=== PATIENT | female | born 1980 ===

== ENCOUNTER → 2016-02-11 | Outpatient (CLI) | payer OTHER ==
[~2016-02-11] MED LIST: FERR1TAB13 PO; MTR600X PO; OXYC-57 PO; PRENTAB26 PO; ZNTT/150 PO
[2016-02-11 18:19] LABS: URINE APPEARANCE CLEAR (CLEAR); URINE BILIRUBIN NEG (NEG); URINE COLOR YELLOW; URINE EPITHELIAL CELL AUTO >30 /lpf (0-5); URINE NITRITE NEG (NEG); URINE SPECIFIC GRAVITY 1.019 (1.000-1.030); UROBILINOGEN NEG (NEG)
[2016-02-11 18:21] LABS: MANUAL MICROSCOPIC REQUIRED? NO; REVIEW REQ? NO
== END | disposition home or self-care (01) ==
LOC: C.LABSPEC 17:45
PROVIDERS: ATTEND Obstetrics & Gynecology
DX: O09.523 Supervision of elderly multigravida, third trimester (principal); Z3A.00 Weeks of gestation of pregnancy not specified

== ENCOUNTER → 2016-02-29 | Outpatient (CLI) | payer OTHER ==
[2016-02-29 16:03] LABS: URINE APPEARANCE TURBID (CLEAR); URINE COLOR ORANGE; URINE EPITHELIAL CELL AUTO >30 /lpf (0-5); URINE NITRITE POS (NEG); UROBILINOGEN NEG (NEG)
[2016-02-29 16:10] LABS: MANUAL MICROSCOPIC REQUIRED? NO; REVIEW REQ? YES
[2016-02-29 16:14] LABS: URINE BILIRUBIN NEG (NEG)
[2016-02-29 16:16] LABS: URINE PATH CASTS 0-3 GRANULAR CASTS /lpf (0)
== END | disposition home or self-care (01) ==
LOC: C.LABSPEC 12:40
PROVIDERS: ATTEND Obstetrics & Gynecology
DX: O30.041 Twin pregnancy, dichorionic/diamniotic, first trimester (principal)

== ENCOUNTER 2016-03-21 18:22 | Outpatient (CLI) | payer OTHER ==
[2016-03-21] MEDS ORDERED: PRENTAB26 PO (18:50)
[2016-04-26] MEDS ORDERED: OXYC-57 PO (07:42)
[2016-04-26] MEDS ORDERED: MTR600X PO (07:42)
== END 2016-03-21 19:09 | disposition home or self-care (01) ==
LOC: C.OPB 18:22 → C.LD 18:22 → C.OPB 19:09
PROVIDERS: ATTEND Obstetrics & Gynecology
DX: O30.003 Twin pregnancy, unspecified number of placenta and unspecified number of amniotic sacs, third trimester (principal); Z3A.32 32 weeks gestation of pregnancy

== ENCOUNTER 2016-03-28 10:21 | Outpatient (CLI) | payer OTHER ==
[~2016-03-28 10:21] MED LIST changes: -FERR1TAB13 PO; -MTR600X PO; -OXYC-57 PO; -ZNTT/150 PO
== END 2016-03-28 10:50 | disposition home or self-care (01) ==
LOC: C.OPB 10:21 → C.LD 10:21 → C.OPB 10:50
PROVIDERS: ATTEND Obstetrics & Gynecology
DX: O30.003 Twin pregnancy, unspecified number of placenta and unspecified number of amniotic sacs, third trimester (principal); Z3A.34 34 weeks gestation of pregnancy

== ENCOUNTER 2016-03-31 07:30 | Inpatient (IN) | payer OTHER ==
[~2016-03-31] VITALS: Ht 170.2 cm; Wt 103.0 kg
[2016-04-23] MEDS ORDERED: ZNTT/150 PO (13:52)
--- NOTE | 2016-04-23 14:15 | PAT Medication Instructions ---
Service Date Apr 23, 2016. Current Home Medication List Multivit/Min/Iron/Fol Ac/Pren ( Vitamin), 1 TAB PO QAM Ranitidine (Zantac), 150 MG PO QAM Medication Instructions For Your Scheduled Surgery - Hold the following medications 48 hours prior to surgery: Multivit/Min/Iron/Fol Ac/Pren ( Vitamin), 1 TAB PO QAM Ranitidine (Zantac), 150 MG PO QAM If you have any questions please call us at [phone] (Diane Prado PA-C) or [phone] or [phone]
[2016-04-23 14:49] LABS: BASO % 0.2 %; BASO ABS # 0.02 K/uL (0-0.2); COMPLETE YES; EOS % 0.8 %; HEMATOCRIT 31.2 % (37-47); IG% 0.3 %; LYMPH % 15.8 %; LYMPH ABS # 1.39 K/uL (1.2-3.4); MEAN CELL VOLUME 80.2 fL (80-100); MEAN CORPUSCULAR HEMOGLOBIN 27.2 pg (25-34); MEAN PLATELET VOLUME 12.1 fL (7.4-10.4); MONO % 8.4 %; NEUT % 74.5 %; PLATELET COUNT 188 K/uL (130-400); RED BLOOD COUNT 3.89 M/uL (4.2-5.4); WHITE BLOOD COUNT 8.81 K/uL (4.8-10.8)
--- NOTE | 2016-04-23 18:34 | HISTORY & PHYSICAL EXAMINATION ---
DATE OF ADMISSION: 04/24/2016 CHIEF COMPLAINT: Term intrauterine , scheduled section. HISTORY OF PRESENT ILLNESS: The patient is a 35-year-old G2, P1-0-0-1 with a due date of 05/10/2016 who is at 37 weeks and 4 days for a scheduled section. She is feeling positive movement, no vaginal bleeding or gushing of fluid, no regular contractions. is complicated by Di-Di twin gestation with growth discrepancy and a drop in the abdominal circumference of baby B, thus prompting a delivery window recommended by [facility] for delivery between 37 and 38 weeks. The patient also desires tubal ligation and signed informed consent in the office. OB HISTORY: History of vaginal delivery x1 in 2006 at 40 weeks 6 days, weighing 8 pounds 9 ounces, no anesthesia and no complications. Last Pap smear 2012 was normal. MEDICAL HISTORY: Anxiety with taking Ativan in the past but stopped once she discovered she was . SURGICAL HISTORY: Tonsillectomy. SOCIAL HISTORY: Denies tobacco, alcohol and drug use. FAMILY HISTORY: Noncontributory. REVIEW OF SYSTEMS: All reviewed negative except as described above. MEDICATIONS: vitamins. ALLERGIES: No known drug allergies. PHYSICAL EXAMINATION: VITAL SIGNS: Stable, afebrile. GENERAL IMPRESSION: Awake, alert and oriented x3, no acute distress. CARDIOVASCULAR EXAMINATION: Regular rate and rhythm S1, S2, no murmurs, gallops or rubs. LUNGS: Clear to auscultation bilaterally. ABDOMEN: Soft, gravid, nontender to palpation. No signs or symptoms of chorioamnionitis or placental abruption. EXTREMITIES: Trace edema. No calf tenderness. Right venous varicosities on right lower extremity. LABORATORY DATA: Blood type A positive, antibody negative, rubella immune, RPR nonreactive, hepatitis B surface antigen negative, HIV negative, gonorrhea and chlamydia negative. The patient declined quad screen. Group B strep negative. ASSESSMENT AND PLAN: 1. A 35-year-old G2, P1-0-0-1 at 37 weeks 5 days. 2. Di-Di twin gestation with growth discrepancy and drop in abdominal circumference of baby. PLAN: Primary low transverse section with tubal ligation per patient request. Will admit to labor and delivery. The patient will have preoperative labs of CBC and type and screen. Will give Ancef and bicitra preoperatively and consultation for anesthesia for spinal prior to .
[2016-04-24] VITALS (17 sets, daily range): BP systolic 110–124; BP diastolic 64–78; PULSE 76–110; TEMP 36.5–37.1; O2SAT 95–99; Ht 170.2 cm; Wt 103.0 kg
[2016-04-24] MEDS ORDERED: LACTATED RINGER'S 1000ML 1,000 ML IV ONE (05:51)
[2016-04-24] MEDS ORDERED: CEFAZOLIN IV 2,000 MG in DEXTROSE 5% 50ML IV SCH (06:00)
[2016-04-24] MEDS ORDERED: CITRIC ACID/SODIUM CITRATE 15 ML UDC PO SCH (06:00)
[2016-04-24] MEDS ORDERED: LACTATED RINGER'S 1000ML 1,000 ML IV SCH (06:00)
[2016-04-24] MEDS ORDERED: OXYTOCIN INJ 10 UNITS/ML VIAL ONE (06:45)
[2016-04-24] MEDS ORDERED: MoRPHine SULFATE PF 1 MG/ML 10 ML AMP/VIAL ONE (06:45)
[2016-04-24] MEDS ORDERED: PHENYLEPHRINE HCL INJ 10 MG/ML VIAL ONE (06:45)
[2016-04-24] MEDS ORDERED: FENTANYL CITRATE INJ 50 MCG/1 ML 2 ML VIAL ONE (06:45)
[2016-04-24] MEDS ORDERED: ONDANSETRON INJ 2 MG/ML 2 ML VIAL ONE (06:45)
[2016-04-24] MEDS ORDERED: EpHEDrine SULFATE INJ 50 MG/ML AMP ONE (06:45)
--- NOTE | 2016-04-24 07:22 | History & Physical Bridge Note ---
H&P Re-Evaluation Bridge Note: I have examined the patient, reviewed the History & Physical and in the interval since the performance of the History & Physical I have noted the following changes of clinical significance: No changes noted
[2016-04-24] MEDS ORDERED: LACTATED RINGER'S 1000ML 500 ML IV PRN (08:52)
[2016-04-24] MEDS ORDERED: SODIUM CHLORIDE 0.9% 1000ML 1,000 ML IV PRN (08:52)
[2016-04-24] MEDS ORDERED: NALOXONE HCL INJ 0.08 MG in SYRINGE 1.8 ML IV PRN (08:52)
--- NOTE | 2016-04-24 08:59 | [facility] Post Operative Brief Note ---
Immediate Operative Summary Operative Date Apr 24, 2016. Pre-Operative Diagnosis Caesarean Section for Twin Gestation; Pt desires Bilateral Tubal Ligation. Post-Operative Diagnosis Same as Preop Procedure(s) Performed Live Male Infant A at 0751 Live Male B at [address] Hillman Director Transition Surgeon(s) Dr. Puente Estimated Blood Loss 800 ML Findings A: male Apgars 7/8 wt 3150g B: male Apgars 8/9 wt 2440g Normal appearing uterus, tubes, ovaries. Specimens Placenta (Exam) Cord Blood Portions Left and Right Fallopian Tubes Drains burns, clear yellow Complication(s) None Disposition Recovery Room / PACU
[2016-04-24] MEDS ORDERED: NO NARCOTICS OR SEDATIVES SCH (09:00)
[2016-04-24] MEDS ORDERED: PROMETHAZINE HCL INJ 25 MG in SODIUM CHLORIDE 0.9% 50ML 50 ML IV PRN (09:00)
[2016-04-24] MEDS ORDERED: NALBUPHINE HCL INJ 10 MG/ML AMP IV PRN (09:00)
[2016-04-24] MEDS ORDERED: DiphenhydrAMINE HCL 50 MG/ML VIAL IV PRN (09:00)
[2016-04-24] MEDS ORDERED: MAGNESIUM HYDROXIDE SUSP 30 ML UDC PO PRN (09:00)
[2016-04-24] MEDS ORDERED: NALOXONE HCL 0.4 MG/1 ML VIAL/CARP IV PRN (09:00)
[2016-04-24] MEDS ORDERED: MoRPHine SULFATE PF 1 MG/ML 10 ML AMP/VIAL EPI PRN (09:00)
[2016-04-24] MEDS ORDERED: MoRPHine SULFATE 2 MG/ML CARP IV PRN (09:00)
[2016-04-24] MEDS ORDERED: MEPERIDINE HCL 25 MG/ML CARP IV PRN (09:00)
[2016-04-24] MEDS: SIMETHICONE 80 MG CHEW PO SCH ×4 (09:00→20:28)
[2016-04-24] MEDS ORDERED: ONDANSETRON INJ 2 MG/ML 2 ML VIAL IV PRN (09:00)
[2016-04-24] MEDS ORDERED: EpHEDrine SULFATE INJ 50 MG/ML AMP IV PRN (09:00)
--- NOTE | 2016-04-24 09:07 | Anesthesiology Progress Note ---
Anesthesia Post Op Note Date & Time Apr 24, 2016 at 09:06 Notes Mental Status: alert / awake / arousable, participated in evaluation Pt Amnestic to Procedure: Yes Nausea / Vomiting: adequately controlled Pain: adequately controlled Airway Patency, RR, SpO2: stable & adequate BP & HR: stable & adequate Hydration State: stable & adequate Neuraxial Anesthesia: was administered, sensory block is resolving Anesthetic Complications: no major complications apparent Pt had C/S under spinal. Her anesthetic course was totally uneventful. Post-op vitals BP 133/67, HR 67, RR 15, SpO2 98% on RA, T 36.3.
--- NOTE | 2016-04-24 09:35 | OPERATIVE REPORT ---
DATE OF OPERATION: 04/24/2016 PREOPERATIVE DIAGNOSES: 1. A 35-year-old G2, P1-0-0-1 at 37 weeks and 5 days. 2. Dichorionic-diamniotic twin gestation. 3. growth discrepancy with a drop in abdominal circumference of baby B. 4. Maternal medicine recommendation for delivery between 37 and 38 weeks. POSTOPERATIVE DIAGNOSES: Same. PROCEDURE: Primary low transverse section with bilateral tubal ligation. ANESTHESIA: Spinal. ESTIMATED BLOOD LOSS: 800 mL. FINDINGS: Viable male, twin with baby A, Apgars 7 and 8 and weight 3150 grams. Baby B male viable with Apgars 8 and 9, weight 2440 grams. Normal appearing uterus, tubes, and ovaries. SURGEON: Kathryn Hillman DO STOCK PLAN ADMINISTRATOR: Dr. Alonzo. SPECIMENS: Placenta, cord blood and portions of left and right fallopian tubes. DRAINS: Cook, clear yellow at the conclusion of case. COMPLICATIONS: None. DISPOSITION: Stable and good to recovery room. INDICATIONS FOR PROCEDURE: The patient is a 35-year-old G2, P1-0-0-1 at 37 weeks 5 days, who had a growth discrepancy of di-di twins, which was evaluated by maternal medicine, who recommended delivery between 37 and 38 weeks due to growth discrepancy. The patient elected to have section performed due to twin gestation. DESCRIPTION OF PROCEDURE: The patient was seen in the preoperative holding area where risks, benefits, and alternatives were reviewed. She had previously signed informed consent in the office. All questions were answered and she elected to proceed with surgery. The patient was taken to the operating room, where 2 grams of Ancef was infused prior to incision. She was given spinal anesthesia. She was prepared and draped in the usual sterile fashion in the supine position with a leftward tilt. A timeout was confirmed. A skin incision was made with the scalpel and carried through to the underlying layer of fascia. The fascia was nicked at midline and this incision was extended bluntly and sharply. The superior aspect of the fascial incision was grasped with Pao clamps x2, elevated off the underlying rectus abdominis muscles and dissected bluntly and sharply. In a similar fashion, the inferior aspect of the incision was dissected. The rectus abdominis muscles were at midline. The peritoneum was entered bluntly digitally and this incision was extended bluntly. A bladder blade was placed. The bladder flap was created using Metzenbaum scissors. The bladder blade was replaced and the uterine incision was made with a scalpel. The incision was extended cephalad caudad manually. Baby A delivered from a cephalic presentation. The head delivered followed by the shoulders and body. No nuchal cord was noted. This baby was handed off to the awaiting pediatrics team after the cord was doubly clamped and cut. Cord segment was retained for gases. Spontaneous cry was heard. Next, baby B delivered from a breech presentation, delivering bilateral legs followed by body and head. The cord was doubly clamped and cut. Baby was handed off to an awaiting pediatrics team and a spontaneous cry was heard. The umbilical cords were labeled with plastic umbilical clamp with one clamp on baby A's umbilical cord and 2 clamps on baby B's. The placenta was then delivered manually intact with 2-3 vessel cords. The uterus was exteriorized and swept of all clots and debris. The hysterotomy incision was reapproximated using 0 Vicryl in a running stitch. A second layer of the same suture was used to imbricate the incision. The tubal ligation was performed using a Baudilio clamp to create a knuckle in the fallopian tube. This was tied off x2 with plain gut suture and the segment of tube was removed and sent to pathology. In a similar fashion, the left fallopian tube was transected. The uterus was returned to the abdomen. Excellent hemostasis was observed. The fascial incision was reapproximated using 0 Vicryl in a running stitch. The subcuticular space was irrigated and reapproximated with 2-0 plain gut in a running stitch. The skin was reapproximated using 4-0 Vicryl in a running subcuticular stitch. The patient and babies tolerated the procedure well and went to the recovery area in stable and good condition. I attest to the content of the Intraoperative Record and any orders documented therein. Any exceptio ns are noted below.
[2016-04-24] MEDS: OXYTOCIN INJ 30 UNITS in LACTATED RINGER'S 1000ML 1,000 ML IV SCH ×2 (09:39→18:00)
[2016-04-24] MEDS: KETOROLAC TROMETHAMINE 30 MG/ML VIAL IV. PRN ×2 (12:01→20:27)
[2016-04-24] MEDS: DOCUSATE SODIUM 100 MG CAP PO SCH (20:28)
[2016-04-25 02:00] VITALS: O2SAT 98
[2016-04-25] MEDS ORDERED: DC INTRASPINAL MORPHINE ONE (02:00)
[2016-04-25] MEDS ORDERED: ZOLPIDEM TARTRATE 5 MG TAB PO PRN (02:01)
[2016-04-25] MEDS ORDERED: KETOROLAC TROMETHAMINE 30 MG/ML VIAL IV. PRN (02:01)
[2016-04-25] MEDS ORDERED: ONDANSETRON INJ 2 MG/ML 2 ML VIAL IV PRN (02:01)
[2016-04-25] MEDS ORDERED: PROMETHAZINE HCL INJ 25 MG in SODIUM CHLORIDE 0.9% 50ML 50 ML IV PRN (02:01)
[2016-04-25] MEDS ORDERED: DiphenhydrAMINE HCL 50 MG/ML VIAL IV PRN (02:01)
[2016-04-25] MEDS: IBUPROFEN 600 MG TAB PO PRN ×5 (04:28→21:24)
[2016-04-25 04:30] VITALS: BP 118/69; PULSE 83; TEMP 37; O2SAT 98
[2016-04-25 06:40] LABS: BASO % 0.1 %; BASO ABS # 0.01 K/uL (0-0.2); EOS % 0.2 %; HEMATOCRIT 25.9 % (37-47); IG% 0.2 %; LYMPH % 4.9 %; LYMPH ABS # 0.62 K/uL (1.2-3.4); MEAN CELL VOLUME 79.7 fL (80-100); MEAN CORPUSCULAR HEMOGLOBIN 26.8 pg (25-34); MEAN CORPUSCULAR HGB CONC 33.6 g/dl (32-36); MEAN PLATELET VOLUME 11.5 fL (7.4-10.4); MONO % 9.9 %; NEUT % 84.7 %; PLATELET COUNT 160 K/uL (130-400); RED BLOOD COUNT 3.25 M/uL (4.2-5.4); WHITE BLOOD COUNT 12.68 K/uL (4.8-10.8)
--- NOTE | 2016-04-25 06:40 | Progress Note ---
Subjective Apr 25, 2016. Subjective conversation w/ patient, physical exam Ambulation: ambulating normally Voiding: no voiding problems Passing Gas: No Diet Tolerance: Regular Diet Lochia: Small Feeding Type: Breast Feeding Review of Systems Constitutional: No chills, No fatigue, No fever Respiratory: No cough, No shortness of breath Cardiac: No chest pain, No palpitations Objective Vital Signs Date Time Temp Pulse Resp B/P Pulse Ox O2 Delivery O2 Flow Rate FiO2 04/25/16 04:30 37.0 83 18 118/69 98 Room Air 04/25/16 02:00 16 98 04/24/16 22:45 Room Air 04/24/16 22:45 16 98 04/24/16 22:45 37.1 76 16 110/64 98 Room Air 04/24/16 22:00 20 99 04/24/16 21:00 18 99 04/24/16 20:00 99 Room Air 04/24/16 20:00 16 99 04/24/16 20:00 37.1 81 16 119/65 99 Room Air 04/24/16 19:00 20 99 04/24/16 18:00 18 99 04/24/16 17:00 20 99 04/24/16 16:00 20 99 04/24/16 16:00 99 Room Air 04/24/16 16:00 36.5 81 18 120/78 99 Room Air 04/24/16 15:00 20 97 04/24/16 14:12 36.7 82 16 120/66 98 Room Air 04/24/16 14:11 16 98 04/24/16 13:06 18 98 04/24/16 13:03 36.8 83 18 118/73 98 Room Air 04/24/16 11:59 37.0 110 16 124/64 98 Room Air 04/24/16 11:58 16 98 04/24/16 11:30 36.9 97 18 116/70 95 Room Air 04/24/16 11:30 18 95 04/24/16 11:00 98 Room Air 04/24/16 11:00 16 98 04/24/16 11:00 36.8 91 16 118/77 98 Room Air Physical Exam General Appearance: WELL-APPEARING, NO APPARENT DISTRESS Respiratory/Chest: lungs clear, no respiratory distress Cardiovascular: regular rate, rhythm, no murmur Abdomen: non tender, soft Fundus: Firm, Non-Tender, Relation to Umbilicus (2 cm below) Incision Description: Clean, Dry & Intact Extremities: non-tender, no calf tenderness Laboratory Results Last 24 Hours Test 04/25/16 06:00 Assessment and Plan Post-Op Day#: 1 Continue Routine Care: s/p Twin Day 1 - vitals reviewed and wnl - Hgb reviewed 10.6 - Blood: A+, GBS-, Rubella immune - Encourage ambulation, encourage , monitor lochia - Patient doing well clinically - CONTINUE ROUTINE POST- CARE Resident Physician Supervision Note: I interviewed and examined the patient. Discussed with Dr. Mcmahon and agree with findings and plan as documented in the note. Any exceptions or clarifications are listed here: POD#1. Doing well. Continue routine postop care. Documented By: Kathryn Hillman
[2016-04-25 07:38] VITALS: BP 99/60; PULSE 86; TEMP 36.8; O2SAT 97
[2016-04-25] MEDS: DOCUSATE SODIUM 100 MG CAP PO SCH ×2 (08:50→21:01)
[2016-04-25] MEDS: SIMETHICONE 80 MG CHEW PO SCH ×4 (08:50→21:01)
[2016-04-25 08:52] LABS: COMPLETE YES
[2016-04-25 15:00] VITALS: BP 111/64; PULSE 102; TEMP 37.1; O2SAT 97; O2SAT 99
[2016-04-25] MEDS: OXYCODONE/ACETAMINOPHEN 5-325 TAB PO PRN ×2 (17:13→21:25)
[2016-04-25 23:55] VITALS: BP 118/79; PULSE 84; TEMP 36.8
[2016-04-26] MEDS: OXYCODONE/ACETAMINOPHEN 5-325 TAB PO PRN ×3 (03:22→12:55)
[2016-04-26] MEDS: IBUPROFEN 600 MG TAB PO PRN ×3 (03:23→12:55)
[2016-04-26 06:30] LABS: HEMATOCRIT 26.1 % (37-47)
[2016-04-26] MEDS ORDERED: FERR1TAB13 PO (07:00)
--- NOTE | 2016-04-26 07:00 | Progress Note ---
Subjective Apr 26, 2016. Subjective conversation w/ patient, physical exam Ambulation: ambulating normally Voiding: no voiding problems Passing Gas: Yes Diet Tolerance: Regular Diet Lochia: Small Feeding Type: Breast Feeding Review of Systems Constitutional: No chills, No fever Respiratory: No cough, No shortness of breath Cardiac: No chest pain, No claudication Objective Vital Signs Date Time Temp Pulse Resp B/P Pulse Ox O2 Delivery O2 Flow Rate FiO2 04/25/16 23:55 36.8 84 20 118/79 Room Air 04/25/16 23:55 Room Air 04/25/16 15:00 97 Room Air 04/25/16 15:00 37.1 102 18 111/64 99 Room Air 04/25/16 08:00 Room Air 04/25/16 07:38 36.8 86 20 99/60 97 Room Air Physical Exam General Appearance: WELL-APPEARING, NO APPARENT DISTRESS Respiratory/Chest: lungs clear, no accessory muscle use Cardiovascular: regular rate, rhythm, no murmur Abdomen: non tender, soft Fundus: Firm, Non-Tender, Relation to Umbilicus (2 cm below) Incision Description: Clean, Dry & Intact Extremities: non-tender, no calf tenderness Laboratory Results Last 24 Hours Test 04/26/16 06:15 Hemoglobin 8.5 g/dL Hematocrit 26.1 % Assessment and Plan Post-Op Day#: 2 Continue Routine Care: s/p Twin Day 2 - vitals reviewed and wnl - Hgb reviewed 8.5 today - Blood: A+, GBS-, Rubella immune - Encourage ambulation, encourage , monitor lochia - Patient doing well clinically - CONTINUE ROUTINE POST- CARE Resident Physician Supervision Note: I was present with Dr. Mcmahon during the history and exam. I discussed the case with the resident and agree with the findings and plan as documented in the note. Any exceptions or clarifications are listed here: Doing well. Wants to go home today. Instructions reviewed. Discussed home fe and pain meds scripts. f/u 6wks pp. instructions reviewed. Documented By: Esther Guzmán
--- NOTE | 2016-04-26 07:02 | Discharge Instructions ---
Discharge Instructions Date of Service Apr 26, 2016. Admission Reason for Admission: Twin , Desires Sterilization Discharge Discharge Diagnosis / Problem: Discharge Goals Goal(s): Routine recovery after Medications Continue Dispensed Medications: supercream, dermaplast, tucks, lansinoh Activity Recommendations Activity Limitations: per Instructions/Follow-up section . Instructions / Follow-Up Instructions / Follow-Up ACTIVITY RECOMMENDATIONS: * Gradual return to full activity over the next 2-3 weeks. * No lifting - nothing heavier than baby over the next 2-3 weeks. * Do not engage in vigorous exercise, sexual activity or sports until cleared by your physician. * Do not drive or operate any motorized equipment until cleared by your physician. * You may shower/bathe daily. MEDICATIONS: For discomfort or pain, you may use Acetaminophen (Tylenol), Ibuprofen (Advil), or Naproxen (Aleve) following the package directions. For constipation you may use Colace following the package directions. BREAST CARE: If you are not breast feeding: * Wear a supportive bra 24 hours a day for one to two weeks. * Avoid stimulating your breasts and nipples as much as possible during the first few weeks after delivery. * When taking a shower, have the warm water hit your back, not breasts. * When your breasts feel full, apply ice packs. Usually three to four times a day helps ease the discomfort. * Take a mild pain medication (Tylenol / Motrin) when you are uncomfortable. If breast feeding: * Use breast milk to lubricate nipples. Lansinoh cream may be used for sore nipples. You do not need to remove cream prior to breast feeding. If using a different brand of cream, check the label for directions regarding removal of cream prior to nursing. * Wear a supportive bra. * If having problems with breasts or breast feeding, call a splunk consultant or your health care provider. EPISIOTOMY CARE: After delivery, if you have an episiotomy (stitches), the following steps will ease discomfort and aid healing. * For the first 24 hours after delivery, place ice packs next to your episiotomy to help reduce swelling. * After the first 24 hour-period, sitz baths, either portable or in the tub, are suggested. A shower with a shower arm sprayed over the episiotomy may be comforting. * Tejal care should be done after each voiding and bowel movement. Squirt warm water from a plastic bottle over the perineum (region of the body between the anus and urinary opening) and pat dry. * Use Dermoplast to ease discomfort. Shake container. [place] directly over the episiotomy. Place a Tucks on a clean sanitary pad next to your episiotomy. SPECIAL CARE INSTRUCTIONS: When you are discharged from the hospital, it is important for you to follow the instructions listed below: * During the first week at home, you should be able to care for yourself and your baby. In addition, the usual light household activities are encouraged. * Limit your activities to the way you feel. Do not try to clean the house or move furniture. Be sensible. * If you actively engage in sports and have done so up until the time of your delivery, you may resume these activities as soon as you feel able. This may take up to one month or even longer. Use good judgment. * Continue to take your vitamins for at least six weeks after the of your baby. * Your diet need not be limited unless you were on a special diet before your delivery. Breast-feeding mothers need around 2500 calories per day and at least 64-80 ounces of fluid per day (8 to 10 glasses). * You should eat foods from the four major food groups. Crash diets or fad diets are to be avoided. Eating lean meats, fresh fruits and vegetables, low-fat dairy products, high fiber foods and a regular exercise program, will help you get back to your pre- weight without putting your health at risk. * Constipation is sometimes a problem after delivery. Take a mild laxative as needed. If breast feeding, Milk of Magnesia is acceptable to use. You may use a suppository or Fleets enema if no episiotomy. * A daily shower or tub bath is suggested. Be sure to thoroughly and gently dry the perineum. * A bloody vaginal discharge will usually continue until around four weeks post . A small amount of bleeding may continue for as long as six weeks. Vaginal discharge changes from the bright red bleeding after delivery to pink then brownish and finally yellowish-pink before becoming white and disappearing. * Bleeding may increase with activity. Your first period may come in 4-8 weeks. If you are breast feeding, your period may be delayed even longer. * [place] (sex) can begin whenever both you and your partner feel comfortable and do not have any form of genital infection. It is recommended that you wait at least six weeks for internal and external healing to occur. If you have questions, please talk to your health care practitioner. A condom should be used to prevent infection and . * Foreplay, gentle intercourse and lubrication is very important the first several times to prevent pain. A water-based lubricant such as K-Y jelly or Astroglide may be used. * If you have RH negative blood and your baby is RH positive, you will receive RHOGAM by injection prior to discharge. The nurse will give you a card to keep with you that has the date and place that you received RHOGAM after delivery. * During your care, you had a Rubella screen done to check for the presence of rubella antibodies in your blood. If your test was negative, you will receive a Rubella vaccine prior to discharge. This vaccine may cause a fever, soreness at the injection site and flu-like symptoms. If these symptoms persist, notify your health care practitioner. is not advised for one month after a Rubella vaccine. * Verbalizes understanding of car seat law as reviewed with patient nursing. * Car Seat hand-out given and reviewed with patient by nursing. * Shaken baby information reviewed with patient by nursing. Call you doctor if: * Heavy bleeding (saturating several pads an hour) or passing clots the size of your fist. * A fever >101 degrees F (38.3 degrees C) on two occasions four hours apart and /or chills. * Unusual pain in the pelvic or vaginal areas. * "Baby Blues" lasting longer than two weeks. If you have any questions or concerns, call your health care practitioner at . FOLLOW UP VISIT: * Please call the office at to schedule a 6 week examination. It is important you keep this appointment. It is important for you to make arrangements for either yearly or twice yearly check-ups thereafter. Current Hospital Diet Patient's current hospital diet: Vegetarian Diet Discharge Diet Recommended Diet: Regular Diet Procedures Procedures Performed: Live Male Infant A at 0751 Live Male B at 0752 Pending Studies Studies pending at discharge: no Medical Emergencies . Who to Call and When: Medical Emergencies: If at any time you feel your situation is an emergency, please call 911 immediately. . Non-Emergent Contact Non-Emergency issues call your: Primary Care Provider, Compensation Adjuster . . "Provider Documentation" section prepared by Juan Mcmahon. VTE Core Measure Inpt VTE Proph given/why not?: Treatment not indicated
[2016-04-26] MEDS ORDERED: OXYC-57 PO (07:42)
[2016-04-26] MEDS ORDERED: MTR600X PO (07:42)
[2016-04-26 08:00] VITALS: BP 111/73; PULSE 80; TEMP 36.6; O2SAT 99
[2016-04-26] MEDS: SIMETHICONE 80 MG CHEW PO SCH ×2 (08:05→12:54)
[2016-04-26] MEDS: DOCUSATE SODIUM 100 MG CAP PO SCH (08:05)
[2016-04-26] MEDS ORDERED: BISACODYL 10 MG SUPP PR PRN (09:00)
[2016-04-26 15:20] VITALS: BP_DIAS 73; PULSE 80; TEMP 36.6
--- NOTE | 2016-05-06 03:01 | DISCHARGE SUMMARY ---
PREADMISSION DIAGNOSES: 1. A 35-year-old -0-0-1 at 37 weeks 5 days. 2. Dichorionic diamniotic twin gestation. 3. growth discrepancy with drop in abdominal circumference of baby B. 4. Maternal medicine recommendation for delivery between 37 and 38 weeks. DISCHARGE DIAGNOSES: Same. PROCEDURE: Primary low transverse section with bilateral tubal ligation. COURSE OF STAY: The patient was admitted following the above noted procedures. Her course of stay was unremarkable. She was discharged to home on 04/26/2016. DISCHARGE DISPOSITION: Stable and good to home. MEDICATIONS: Iron, ibuprofen and Percocet. Continue home medications of vitamin and Zantac as needed. DIET: Regular. ACTIVITY: Pelvic rest and no heavy lifting. Follow up 6 weeks in the office.
== END 2016-04-26 15:32 | disposition home or self-care (01) | DRG 766 ==
LOC: EDSTATUS 07:30 → C.LD 04-24 05:46 → C.OBG 04-24 11:14
PROVIDERS: ADMIT Obstetrics & Gynecology; ATTEND Obstetrics & Gynecology
PROC: 10D00Z1 Extraction of Products of Conception, Low, Open Approach (ICD-10-PCS; principal; 2016-04-26)
PROC: 10E0XZZ Delivery of Products of Conception, External Approach (ICD-10-PCS; principal; 2016-04-26)
DX: O30.043 Twin pregnancy, dichorionic/diamniotic, third trimester (principal); O09.523 Supervision of elderly multigravida, third trimester; Z3A.37 37 weeks gestation of pregnancy; Z37.2 Twins, both liveborn

== ENCOUNTER 2016-04-03 17:31 | Outpatient (CLI) | payer OTHER ==
--- NOTE | 2016-04-08 08:14 | EDITING REQUIRED CODING QUERY ---
DIAGNOSIS NEEDED To promote full compliance with coding requirements relating to patient care, physician participation is requested in all cases of medicaid billing clerk uncertainty. Please assist us with the question(s) below: Coding Question: The patient received care in labor and delivery on 04/03/16 as noted within the record. Please document the diagnosis that is being addressed by the medication/treatment. Provider Response: DIAGNOSIS: NST for Twin Gestation Thank you for your assistance, Jade Cheng - Research Consultant
== END 2016-04-03 18:09 | disposition home or self-care (01) ==
LOC: C.OPB 17:31 → C.LD 17:31 → C.OPB 18:09
PROVIDERS: ATTEND Obstetrics & Gynecology
DX: O30.003 Twin pregnancy, unspecified number of placenta and unspecified number of amniotic sacs, third trimester (principal); Z3A.34 34 weeks gestation of pregnancy

== ENCOUNTER → 2016-04-11 | Outpatient (CLI) | payer OTHER ==
[~2016-04-11] MED LIST changes: +FERR1TAB13 PO; +MTR600X PO; +OXYC-57 PO; +ZNTT/150 PO
[2016-04-11 14:34] LABS: HEMATOCRIT 33.9 % (37-47); MEAN CELL VOLUME 82.9 fL (80-100); MEAN CORPUSCULAR HEMOGLOBIN 27.4 pg (25-34); MEAN PLATELET VOLUME 12.3 fL (7.4-10.4); PLATELET COUNT 202 K/uL (130-400); RED BLOOD COUNT 4.09 M/uL (4.2-5.4); WHITE BLOOD COUNT 10.32 K/uL (4.8-10.8)
[2016-04-11 14:38] LABS: CALCIUM 8.3 mg/dl (8.5-10.1)
[2016-04-11 14:47] LABS: FERRITIN 7.7 ng/ml (8.0-388.0)
== END | disposition home or self-care (01) ==
LOC: C.LAB1850 13:00
PROVIDERS: ATTEND Obstetrics & Gynecology
DX: O30.003 Twin pregnancy, unspecified number of placenta and unspecified number of amniotic sacs, third trimester (principal); O09.93 Supervision of high risk pregnancy, unspecified, third trimester; Z3A.00 Weeks of gestation of pregnancy not specified

== ENCOUNTER 2016-04-12 13:04 | Outpatient (CLI) | payer OTHER ==
[~2016-04-12 13:04] MED LIST changes: -FERR1TAB13 PO; -MTR600X PO; -OXYC-57 PO; -ZNTT/150 PO
== END 2016-04-12 13:45 | disposition home or self-care (01) ==
LOC: C.LD 13:04 → C.OPB 13:04
PROVIDERS: ATTEND Obstetrics & Gynecology
DX: O30.043 Twin pregnancy, dichorionic/diamniotic, third trimester (principal); Z3A.36 36 weeks gestation of pregnancy

== ENCOUNTER 2016-04-15 12:35 | Outpatient (CLI) | payer OTHER ==
--- NOTE | 2016-04-18 08:47 | EDITING REQUIRED CODING QUERY ---
DIAGNOSIS NEEDED To promote full compliance with coding requirements relating to patient care, physician participation is requested in all cases of medical records coder uncertainty. Please assist us with the question(s) below: Coding Question: The patient received care in labor and delivery on 04/15/16 as noted within the record. Please document the diagnosis that is being addressed by the medication/treatment. Provider Response: DIAGNOSIS: Twin Thank you for your assistance, Jade Cheng - Director Corporate Communications
== END 2016-04-15 13:15 | disposition home or self-care (01) ==
LOC: C.OPB 12:35 → C.LD 12:35 → C.OPB 13:15
PROVIDERS: ATTEND Obstetrics & Gynecology
DX: O30.003 Twin pregnancy, unspecified number of placenta and unspecified number of amniotic sacs, third trimester (principal); Z3A.36 36 weeks gestation of pregnancy

== ENCOUNTER 2016-04-18 16:18 | Outpatient (CLI) | payer OTHER ==
[2016-04-18] MEDS ORDERED: BETAMETH SOD PHOS/ACETATE IA 6 MG/ML IM ONE (16:45)
== END 2016-04-18 17:05 | disposition home or self-care (01) ==
LOC: C.LD 16:18 → C.OPB 16:18
PROVIDERS: ATTEND Obstetrics & Gynecology
DX: O30.043 Twin pregnancy, dichorionic/diamniotic, third trimester (principal); Z3A.36 36 weeks gestation of pregnancy

== ENCOUNTER 2016-04-19 16:54 | Outpatient (CLI) | payer OTHER ==
[2016-04-19] MEDS ORDERED: NURSING VERBAL MED ORDER ONE (17:00)
[2016-04-19] MEDS ORDERED: BETAMETH SOD PHOS/ACETATE IA 6 MG/ML IM ONE (17:15)
--- NOTE | 2016-04-22 06:41 | EDITING REQUIRED CODING QUERY ---
DIAGNOSIS NEEDED To promote full compliance with coding requirements relating to patient care, physician participation is requested in all cases of phonograph cartridge assembler uncertainty. Please assist us with the question(s) below: Coding Question: The patient received care in labor and delivery on 04/19/16 as noted within the record. Please document the diagnosis that is being addressed by the medication/treatment. Provider Response: DIAGNOSIS: 37 weeks gestation, di/di twins. Came to L&D for betamethasone injection for anticipated early delivery. Thank you for your assistance, Jade Cheng - Postal Superintendent
== END 2016-04-19 17:20 | disposition home or self-care (01) ==
LOC: C.OPB 16:54 → C.LD 16:54 → C.OPB 17:20
PROVIDERS: ATTEND Obstetrics & Gynecology
DX: O30.043 Twin pregnancy, dichorionic/diamniotic, third trimester (principal); Z3A.37 37 weeks gestation of pregnancy

== ENCOUNTER 2016-04-22 14:12 | Outpatient (CLI) | payer OTHER ==
[2016-04-23] MEDS ORDERED: ZNTT/150 PO (13:52)
== END 2016-04-22 14:45 | disposition home or self-care (01) ==
LOC: C.OPB 14:12 → C.LD 14:12 → C.OPB 14:45
PROVIDERS: ATTEND Obstetrics & Gynecology
DX: O30.003 Twin pregnancy, unspecified number of placenta and unspecified number of amniotic sacs, third trimester (principal); Z3A.37 37 weeks gestation of pregnancy